=== PATIENT | female | born 1980 | race Caucasian/White ===

== ENCOUNTER 2016-06-11 14:44 | Emergency (ER) | payer OTHER | END 2016-06-11 15:20 | disposition left against medical advice (07) | LOC: UCCORT 14:44 | DX: R09.81 Nasal congestion (principal); Z53.21 Procedure and treatment not carried out due to patient leaving prior to being seen by health care provider ==

== ENCOUNTER 2016-10-27 11:49 | Emergency (ER) | payer OTHER | END 2016-10-27 13:50 | disposition left against medical advice (07) | LOC: UCCORT 11:49 | DX: N39.9 Disorder of urinary system, unspecified (principal); Z53.21 Procedure and treatment not carried out due to patient leaving prior to being seen by health care provider ==

== ENCOUNTER 2018-04-12 08:50 | Emergency (ER) | payer BC, OTHER ==
[2018-04-12 09:19] VITALS: BP 144/84
--- NOTE | 2018-04-12 10:18 | ED ---
Respiratory - HPI Summary HPI Summary: 37 yr old with runny nose, coughing, rib pain with coughing and breathin on left , hoarse voice. Onset of symptoms several days ago. Saw her PMD on The 08 of April and told she had pneumonia and started on antibiotics. She states that she is not feeling better. She continues to have a dry heavy cough, laryngitis. - History of Current Complaint Chief Complaint: UCRespiratory Stated Complaint: CHEST/RIB COMPLAINT COUGH Time Seen by Provider: 04/12/18 09:32 Pain Intensity: 10 - Allergy/Home Medications Allergies/Adverse Reactions: Allergies Allergy/AdvReac Type Severity Reaction Status Date / Time azithromycin [From Zithromax] Allergy Intermediate Hives Verified 04/12/18 09:27 erythromycin base Allergy Intermediate Hives Verified 04/12/18 09:27 amoxicillin [From Augmentin] Allergy Unknown Unknown Verified 04/12/18 09:27 Reaction Details clavulanic acid Allergy Unknown Unknown Verified 04/12/18 09:27 [From Augmentin] Reaction Details paroxetine [From Paxil] Allergy Unknown Unknown Verified 04/12/18 09:27 Reaction Details [id number] Antimigraine Allergy Unknown Unknown Verified 04/12/18 09:27 Agents Reaction Details caffeine AdvReac Intermediate Nausea Verified 04/12/18 09:27 ergotamine AdvReac Nausea Verified 04/12/18 09:27 Home Medications: Home Medications Amoxicillin/Clavulanate TAB* [Augmentin TAB 875*] 875 mg PO BID 04/12/18 [ History Confirmed 04/12/18] Benzonatate CAP* [Tessalon 100 MG CAP*] 100 mg PO TID 04/12/18 [History Confirmed 04/12/18] Budesonide Flexhaler 180 (NF) [Pulmicort Flexhaler 180 mcg/act (NF)] 180 mcg INH DAILY 04/12/18 [History Confirmed 04/12/18] predniSONE TAB* [Deltasone 10 MG TAB*] 10 mg PO DAILY 04/12/18 [History Confirmed 04/12/18] PMH/Surg Hx/FS Hx/Imm Hx Endocrine/Hematology History: Denies: Hx Diabetes Cardiovascular History: Denies: Hx Congestive Heart Failure, Hx Hypertension GI History: Reports: Other GI Disorders - pt states she has had nausea with pain History: Denies: Hx Renal Disease Sensory History: Reports: Hx Contacts or Glasses Opthamlomology History: Reports: Hx Contacts or Glasses Neurological History: Reports: Hx Seizures - march 2012, Other Neuro Impairments/Disorders - seizures Psychiatric History: Reports: Hx Anxiety - Surgical History Surgery Procedure, Year, and Place: 2 c-sections 2006. 2008, APPENDECTOMY, TUBAL LIGATION. REMOVAL OF FALLOPIAN TUBES- FEB 2015 Hx Anesthesia Reactions: No Infectious Disease History: Yes Infectious Disease History: Reports: Hx Shingles - 18 years ago Denies: Traveled Outside the [place] in Last 30 Days - Family History Known Family History: Positive: Hypertension, Other - unsure of PMH of parents - Social History Alcohol Use: Rare Alcohol Amount: GLASS OF WINE AT NIGHT Substance Use Type: Reports: None Smoking Status (MU): Former Smoker Type: Cigarettes Review of Systems Constitutional: Negative Eyes: Negative Positive: Sore Throat, Nasal Discharge Positive: Cough Negative: Edema All Other Systems Reviewed And Are Negative: Yes Physical Exam - Summary Physical Exam Summary: The patient is seated on bench in room. She appears tired, but not short of breath. She speaks with hoarse voice, and has spasmodic coughing episodes during interview. Triage Information Reviewed: Yes Vital Signs On Initial Exam: Initial Vitals Temp Pulse Resp BP Pulse Ox 100.0 F 85 22 144/84 99 04/12/18 09:16 04/12/18 09:16 04/12/18 09:16 04/12/18 09:16 04/12/18 09:16 Vital Signs Reviewed: Yes Appearance: Positive: Well-Appearing, No Pain Distress Skin: Positive: Warm, Skin Color Reflects Adequate Perfusion Head/Face: Positive: Normal Head/Face Inspection Eyes: Positive: EOMI ENT: Positive: Pharyngeal erythema, TMs normal, Hoarse voice, Uvula midline. Negative: Muffled voice Neck: Positive: Nontender Respiratory/Lung Sounds: Positive: Clear to Auscultation, Breath Sounds Present , Other - left ribs tender lower lateral Cardiovascular: Positive: RRR. Negative: Murmur Abdomen Description: Positive: Nontender Musculoskeletal: Positive: Strength/ROM Intact Neurological: Positive: Sensory/Motor Intact, Alert, Oriented to Person Place, Time, CN Intact II-III Psychiatric: Positive: Normal - Bailey Coma Scale Best Eye Response: 4 - Spontaneous Best Motor Response: 6 - Obeys Commands Best Verbal Response: 5 - Oriented Coma Scale Total: 15 Diagnostics - Vital Signs Vital Signs Temp Pulse Resp BP Pulse Ox 04/12/18 09:16 100.0 F 85 22 144/84 99 - Laboratory Lab Statement: Any lab studies that have been ordered have been reviewed, and results considered in the medical decision making process. - Radiology chest xray il lat Radiology Interpretation Completed By: Radiologist - some atelectasis left upper lobe. Disposition - Course Course Of Treatment: 37 yr old with coughing, rib pain, laryngitis, URI symptoms. No definite pneumonia on chest xray per radiologist reading, but the atelectasis reading may be pneumonia.In viewing her film she does have interstitial markings that are increased. I will cover her with Doxycycline to cover for atypical pneumonia. She knows to go to the ER for any worsening symptoms, and if not better over the weekend. - Diagnoses Provider Diagnoses: Pneumonia, Laryngitis Discharge - Sign-Out/Discharge Documenting (check all that apply): Patient Departure All imaging exams completed and their final reports reviewed: Yes - Discharge Plan Condition: Good Disposition: HOME Prescriptions: DOXYcycline CAP(*) [DOXYcycline 100MG CAP(*)] 100 mg PO BID #20 cap predniSONE TAB* [Deltasone 20 MG TAB*] 40 mg PO DAILY #4 tab Patient Education Materials: Pneumonia (ED), Laryngitis (ED), Hypertension (ED) Referrals: Hamilton Barrera MD [Primary Care Provider] - 1 Day - Billing Disposition and Condition Condition: GOOD Disposition: Home
[2018-04-12] MEDS ORDERED: predniSONE TAB* 20 MG PO ONE (10:29)
[2018-04-12] MEDS ORDERED: DOXYcycline CAP(*) 100 MG PO ONE (10:42)
== END 2018-04-12 10:57 | disposition home or self-care (01) ==
LOC: UCCORT 08:50
DX: J18.9 Pneumonia, unspecified organism (principal); J04.0 Acute laryngitis; Z88.0 Allergy status to penicillin; Z88.1 Allergy status to other antibiotic agents; Z88.8 Allergy status to other drugs, medicaments and biological substances; Z87.891 Personal history of nicotine dependence
CPT/HCPCS: 71046; 99212; A9270-GY; G0463; J7512

== ENCOUNTER → 2018-07-15 14:57 | Emergency (ER) | payer BC ==
[~2018-07-15 14:57] MED LIST: Albuterol HFA INHALER* 8 gm MDI INH ONE; Albuterol/Ipratropium NEB.SOL* Albuterol 2.5 MG/Ipratropium 0.5 MG 3 ML INH ONE; NS 0.9% 1000 ML** 1,000 ML IV ONE; Potassium Chlor TAB* 20 MEQ TAB.ER PO ONE; methylPREDNISolone 125 MG* 2 ML VIAL IV ONE
[2018-07-15 16:03] LABS: ABS Basophils 0 10^3/ul (0-0.2); ABS Eosinophils 0 10^3/ul (0-0.6); ABS Lymphocytes 2.3 10^3/ul (1.0-4.8); ABS Monocytes 0.5 10^3/ul (0-0.8); ABS Neutrophils 6.3 10^3/ul (1.5-7.7); ABS Nucleated RBC 0 10^3/ul; Eosinophil % 0.5 %; Hematocrit 40 % (35-47); Hemoglobin 13.5 g/dl (12.0-16.0); Lymphocyte % 25.1 %; Mean Corpuscular HGB Conc 34 g/dl (31-36); Mean Corpuscular Hemoglobin 28 pg (27-31); Mean Corpuscular Volume 82 fL (80-97); Mean Platelet Volume 7.9 fL (7.4-10.4); Nucleated Red Blood Cells % 0; Platelet Count 356 10^3/ul (150-450); Red Blood Count 4.89 10^6/ul (4.00-5.40); Red Cell Distribution Width 13 % (10.5-15); White Blood Count 9.1 10^3/ul (3.5-10.8)
--- NOTE | 2018-07-15 16:05 | ED ---
Shortness of Breath - HPI Summary HPI Summary: Pt is a 37 y/o F presenting to the ED with a chief complaint of shortness of breath around 1400 during her pulmonary function test. She had pneumonia in April and never really recovered from the symptoms, but only experiences shortness of breath when shes outside in the cold. She had a PFT today, during which she was given methacholine and she did not recover from her lung capacity being brought down. The pt has a hx of asthma, reactive airway disease, and anxiety. She reports sob and cough. Pt denies any fever, chills, diaphoresis, erythema of eyes, sore throat, CP, abdominal pain, N/V, dysuria, hematuria, myalgia, edema, rash, or dizziness. - History of Current Complaint Chief Complaint: EDShortnessOfBreath Time Seen by Provider: 07/15/18 15:48 Hx Obtained From: Patient Onset/Duration: Sudden Onset, Lasting Hours, Still Present Timing: Constant Current Severity: Moderate Dyspnea At: Rest Aggrevating Factors: Other - methacholine Alleviating Factors: Nothing Associated Signs & Symptoms: Cough (Nonproductive) - Allergy/Home Medications Allergies/Adverse Reactions: Allergies Allergy/AdvReac Type Severity Reaction Status Date / Time azithromycin [From Zithromax] Allergy Intermediate Hives Verified 04/12/18 09:27 erythromycin base Allergy Intermediate Hives Verified 04/12/18 09:27 amoxicillin [From Augmentin] Allergy Unknown Unknown Verified 04/12/18 09:27 Reaction Details clavulanic acid Allergy Unknown Unknown Verified 04/12/18 09:27 [From Augmentin] Reaction Details paroxetine [From Paxil] Allergy Unknown Unknown Verified 04/12/18 09:27 Reaction Details [id number] Antimigraine Allergy Unknown Unknown Verified 04/12/18 09:27 Agents Reaction Details caffeine AdvReac Intermediate Nausea Verified 04/12/18 09:27 ergotamine AdvReac Nausea Verified 04/12/18 09:27 PMH/Surg Hx/FS Hx/Imm Hx Previously Healthy: No Endocrine/Hematology History: Denies: Hx Diabetes Cardiovascular History: Denies: Hx Congestive Heart Failure, Hx Hypertension Respiratory History: Reports: Hx Asthma, Other Respiratory Problems/Disorders - reactive airway disease GI History: Reports: Other GI Disorders - pt states she has had nausea with pain History: Denies: Hx Renal Disease Sensory History: Reports: Hx Contacts or Glasses Opthamlomology History: Reports: Hx Contacts or Glasses Neurological History: Reports: Hx Seizures - march 2012, Other Neuro Impairments/Disorders - seizures Psychiatric History: Reports: Hx Anxiety - Surgical History Surgery Procedure, Year, and Place: 2 c-sections 2006. 2008, APPENDECTOMY, TUBAL LIGATION. REMOVAL OF FALLOPIAN TUBES- FEB 2015 Hx Anesthesia Reactions: No Infectious Disease History: No Infectious Disease History: Reports: Hx Shingles - 18 years ago Denies: Traveled Outside the [place] in Last 30 Days - Family History Known Family History: Positive: Hypertension, Other - unsure of PMH of parents - Social History Alcohol Use: Rare Alcohol Amount: GLASS OF WINE AT NIGHT Hx Substance Use: No Substance Use Type: Reports: None Hx Tobacco Use: Yes Smoking Status (MU): Former Smoker Type: Cigarettes Review of Systems Negative: Fever, Chills, Skin Diaphoresis Negative: Erythema Negative: Sore Throat Negative: Chest Pain Positive: Shortness Of Breath, Cough Negative: Abdominal Pain, Vomiting, Nausea Negative: dysuria, hematuria Negative: Myalgia, Edema Negative: Rash Neurological: Negative - dizziness All Other Systems Reviewed And Are Negative: Yes Physical Exam - Summary Physical Exam Summary: Constitutional: Well-developed, Well-nourished, Alert. (-) Distressed Skin: Warm, Dry HENT: Normocephalic; Atraumatic Eyes: Conjunctiva normal Neck: Musculoskeletal ROM normal neck. (-) JVD, (-) Stridor, (-) Tracheal deviation Cardio: Rhythm regular, rate normal, Heart sounds normal; Intact distal pulses; The pedal pulses are 2+ and symmetric. Radial pulses are 2+ and symmetric. (-) Murmur Pulmonary/Chest wall: Effort normal. (-) Respiratory distress, (-) Wheezes, (-) Rales Abd: Soft, (-) tenderness, (-) Distension, (-) Guarding, (-) Rebound Musculoskeletal: (-) Edema Lymph: (-) Cervical adenopathy Neuro: Alert, Oriented x3 Psych: Mood and affect Normal Triage Information Reviewed: Yes Vital Signs On Initial Exam: Initial Vitals Temp Pulse Resp BP Pulse Ox 98.6 F 126 24 171/107 94 07/15/18 15:04 07/15/18 15:04 07/15/18 15:04 07/15/18 15:04 07/15/18 15:04 Vital Signs Reviewed: Yes Diagnostics - Vital Signs Vital Signs Temp Pulse Resp BP Pulse Ox 07/15/18 15:04 98.6 F 126 24 171/107 94 - Laboratory Result Diagrams: 07/15/18 15:56 07/15/18 15:56 Lab Statement: Any lab studies that have been ordered have been reviewed, and results considered in the medical decision making process. - Radiology Chest x-ray Radiology Interpretation Completed By: Radiologist Summary of Radiographic Findings: No active cardiopulmonary disease is noted. ED physician has reviewed this report. - EKG 1638 Cardiac Rate: NL - 91bpm EKG Rhythm: Sinus Rhythm ST Segment: Normal Ectopy: None Summary of EKG Findings: No STEMI. Re-Evaluation - Re-Evaluation 1st re-eval Re-Evaluation Time: 17:10 Change: Improved Comment: Pt is feeling a little bit better. Upon examination, her lungs sound clear. She will be ambulated around the ED. Course/Dx - Course Course Of Treatment: Pt is a 37 y/o F presenting to the ED with a chief complaint of shortness of breath around 1400 during her pulmonary function test. She had pneumonia in April and never really recovered from the symptoms, but only experiences shortness of breath when shes outside in the cold. She had a PFT today, during which she was given methacholine and she did not recover from her lung capacity being brought down. The pt has a hx of asthma , reactive airway disease, and anxiety. She reports sob and cough. Pt denies any fever, chills, diaphoresis, erythema of eyes, sore throat, CP, abdominal pain, N/V, dysuria, hematuria, myalgia, edema, rash, or dizziness. Breath sounds normal upon examination. CXR shows no active cardiopulmonary disease. The pt will be sent home with dx including asthma exacerbation, methacholine challenge positive, and medication adverse effect. - Diagnoses Provider Diagnoses: Asthma exacerbation, Methacholine challenge positive, Medication adverse effect Discharge - Sign-Out/Discharge Documenting (check all that apply): Patient Departure Patient Received Moderate/Deep Sedation with Procedure: No - Discharge Plan Condition: Stable Disposition: HOME Prescriptions: predniSONE TAB* [Deltasone TAB*] 50 mg PO DAILY #3 tab Referrals: Hamilton Barrera MD [Primary Care Provider] - Additional Instructions: Please follow up with your primary care provider within the next three days. Return to the emergency department with any new or worsening symptoms. - Attestation Statements Document Initiated by Scribe: Yes Documenting Scribe: Christina Wilson Provider For Whom Scribe is Documenting (Include Credential): Lukasz Pavon MD. Scribe Attestation: I, Christina Wilson, scribed for Lukasz Pavon MD. on 07/15/18 at 1758. Status of Scribe Document: Ready
[2018-07-15 16:19] LABS: Albumin 4.5 g/dL (3.2-5.2); Albumin/Globulin Ratio 1.7 (1-3); BUN/Creatinine Ratio 12.3 (8-20); C Reactive Protein 5.53 mg/L (<8.01); EGFR African American 108.5 (>60); EGFR Non-African American 89.7 (>60); Globulin 2.6 g/dL (2-4); Potassium 2.8 mmol/L (3.5-5.0); Total Bilirubin 0.6 mg/dL (0.2-1.0); Total Protein 7.1 g/dL (6.4-8.9)
[2018-07-15 18:11] VITALS: BP 124/83
== END | disposition home or self-care (01) ==
LOC: ED 14:57
DX: J45.901 Unspecified asthma with (acute) exacerbation (principal); T44.1X5A Adverse effect of other parasympathomimetics [cholinergics], initial encounter; Y92.9 Unspecified place or not applicable; F41.9 Anxiety disorder, unspecified; Z87.891 Personal history of nicotine dependence
CPT/HCPCS: 36415; 71046; 80053; 84484; 85025; 85379; 86140; 93005; 96361; 96374; 99283; A9270-GY; J2930

== ENCOUNTER 2018-11-28 14:24 | Emergency (ER) | payer BC ==
--- OUTSIDE RECORDS SUMMARY | 2018-11-28 14:46 | XMS REPORT | Continuity of Care Document ---
:1980 External Reference #:[id number] Author Name Aki Ryan DO, MPH Address [address], [address] [place] [address] Care Team Providers Name Role Phone Hamilton Barrera M.D. 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 Primary Care Physician Unavailable Payers Date Identification Numbers Payment Provider Subscriber Policy Number: [id number] / CN[employer] Ppo Lissa Christie PayID: [id number] [address] [address] [place] [address] Family History Date Family Member(s) Observation Comments Father 64 Mother 64 Children 2 Siblings 2 Social History Type Date Description Comments Sex Unknown Marital Status Lives With Children Occupation Currently Working Occupation [employer] Work Status Currently Working ETOH Use Denies alcohol use Tobacco Use Start: Unknown End: Patient is a former smoker Unknown Recreational Drug Use Denies Drug Use Smoking Status Reviewed: 10/31/18 Patient is a former smoker Allergies, Adverse Reactions, Alerts Active Allergies Reaction Severity Comments Date Amitriptyline 10/31/2018 Nortriptyline 10/31/2018 Erythromycin Hives 10/31/2018 Medications Active Medications SIG Qnty Indications Ordering Provider Date Tramadol HCL si by mouth 90tabs Aki Ryan DO, 10/31/2018 50mg every 8 hours as MPH Tablets directed Lyrica si by mouth Unknown 150mg Capsules three times a day as directed chronic pain patient Tizanidine HCL si.5 by mouth Unknown 4mg every 8 hours as Tablets directed Alprazolam 1 every 8 hours Unknown 0.5mg as needed Tablets Dispers Lidocaine apply 1 every 10 Unknown 5% Patches hours to affected area as directed Lidocaine apply 1-2 grams Unknown 5% Cream to the cervical spine three to four times a day CBD Oil 2500 mg by mouth Unknown one to two times a day CBD Cream 500 MG as needed Unknown Magnesium 1 by mouth daily Unknown 200mg Chewtabs Vitamin B Complex si by mouth Unknown daily Tablets Daily Vitamin 1 by mouth daily Unknown Tablets Naproxen as needed Unknown 500mg Tablets Ibuprofen as needed Unknown 800mg Tablets Vital Signs Date Vital Result Comment 10/31/2018 9:26am BP Systolic 128 mmHg BP Diastolic 84 mmHg Heart Rate 86 /min Respiratory Rate 20 /min Height 62 inches 5'2" Weight 200.00 lb Pain Level 5 Pain at this time. Pain Level Without Medicine 10 02/20 without meds BMI (Body Mass Index) 36.6 kg/m2 Plan of Treatment Future Appointment(s):11/25/2018 10:15 am - Aki Ryan DO, MPH at Main Office as Of 06/14/1405 - Aki Ryan DO, MPHG89.21 Chronic pain due to traumaComments:Chronic Intractable Pain. Symptoms and complaints discussed and reviewed today. Begin trial of adequate and appropriate Opioid Pain Management as well as non-opioid treatment options - New Medications listed below.M54.2 CervicalgiaComments:Chronic Intractable Pain. Symptoms and complaints discussed and reviewed today. Begin trial of adequate and appropriate Opioid Pain Management as well as non-opioid treatment options - New Medications listed below. Notable somatic dysfunctions warranting OMT to cervicals. Patient is stable and comfortable with current medical therapy.M99.01 Segmental and somatic dysfunction of cervical regionComments:Symptoms and complaints discussed and reviewed today. Somatic dysfunctions noted warranting OMT. Continue current medical pain management and OMT. [id number]. OMT performed.M79.601 Pain in right armComments:Chronic Intractable Pain. Symptoms and complaints discussed and reviewed today. Begin trial of adequate and appropriate Opioid pain Management - New Medications listed below.M79.602 Pain in left armComments:Chronic Intractable Pain. Symptoms and complaints discussed and reviewed today. Begin trial of adequate and appropriate Opioid pain Management - New Medications listed below.M25.511 Pain in right shoulderComments :Chronic Intractable Pain. Symptoms and complaints discussed and reviewed today. Begin trial of adequate and appropriate Opioid pain Management - New Medications listed below.M25.512 Pain in left shoulderComments:Chronic Intractable Pain. Symptoms and complaints discussed and reviewed today. Begin trial of adequate and appropriate Opioid pain Management - New Medications listed below.M54.16 Radiculopathy, lumbar regionComments:Chronic Intractable Pain. Symptoms and complaints discussed and reviewed today. Begin trial of adequate and appropriate Opioid pain Management - New Medications listed below.M54.5 Low back painComments:Chronic Intractable Pain. Symptoms and complaints discussed and reviewed today. Begin trial of adequate and appropriate Opioid pain Management - New Medications listed below.M54.18 Radiculopathy, sacral and sacrococcygeal regionComments:Chronic Intractable Pain. Symptoms and complaints discussed and reviewed today. 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 A urine drug test (UDT) was ordered for this patient and collected on site today. Creatinine has been ordered as well for specimen validity, not for kidney function. Preliminary UDT results are not final and should not be used to determine patient care or plan of treatment. Initially a qualitative immunoassay screen will be done. Any inconsistent or positive findings will be further tested with a more comprehensive quantitative confirmation LCMS study. It is part of the treatment process of prescribing controlled substances and is considered standard of care.Z13.31 Encounter for screening for depressionComments:PHQ-9 Depression Screen administered today, results were Positive at this time. Followed by PCP. Will follow as pertains to their pain. Patient seems to be stable today. Reassurance and counseling. Patient seems to be stable today.F07.81 Postconcussional syndromeComments:She is following with [facility]. Will monitor as it pertains to her pain.M54.12 Radiculopathy, cervical regionComments:Chronic Intractable Pain. Symptoms and complaints discussed and reviewed today. Begin trial of adequate and appropriate Opioid pain Management - New Medications listed below. Will contact her insurance company to see if she needs prior authorization for injection therapy for the following; the injections that we are requesting on the behalf of the patient are:Tendon Sheath Injection () quantity of 4, Tendon Origin Insertion () quantity of 2,Trigger Point Injection () quantity of 2, Bilateral Occipital Nerve Block () quantity of 2.M79.671 Pain in right footComments:Chronic Intractable Pain. Symptoms and complaints discussed and reviewed today. Begin trial of adequate and appropriate Opioid pain Management - New Medications listed below.F41.9 Anxiety disorder, unspecifiedComments:Followed by PCP. Reassurance and counseling given.M79.7 FibromyalgiaComments:Symptoms and complaints discussed and reviewed today. Begin trial of adequate and appropriate OpioidPain Management - New Medications listed below.Z71.89 Other specified counselingComments:New patient counseled in regards to office practice. They were educated about our answering services. What to do if they should have to visit the ER or have any adverse reactions to medications we prescribe. Patient understands that they have to fill their prescription at one pharmacy. If there is a change they must call us and let us know what new pharmacy they will be using. They understand and agree that they must present within 24 hours of a phone call for a random urine screen and a pill count. Patient understands that if the medication needs a prior authorization that it can take up to 72 hours to complete.Z71.3 Dietary counseling and surveillanceComments:Regular, small, nutritious meals higher in protein encouraged spaced evenly throughout the day. Count calories. Keep a food log. Hydrate.AllNew Medication:Tramadol HCL 50 mg - si by mouth every 8 hours as directedComments:Chronic intractable pain - Begin trial of adequate and appropriate Opioid Pain Management - New Medications listed below; injection therapy, osteopathic manipulation, PT / modalities, and consults as needed to manage chronic pain.Non - opioid pain management discussed and options discussed.Side effects discussed; anticipatory guidance given. Patient clearly understand and agree with all medical treatments and suggestions. All medicines prescribed are adequate and appropriate for this patient's complaint of pain, medical history, physical, and personal goals.Goals of Treatment are to provide adequate and appropriate multidisciplinary medical pain management to increase/ maintain patient's quality of life and functionality while maintaining satisfactory side effect profile and minimizing joint terminal attack controller end-organ damage. Importance of regular nutrition throughout the day discussed.Activity as toleratedContinue with PCP
[2018-11-28 14:49] VITALS: BP 130/77
--- NOTE | 2018-11-28 15:20 | UC ---
Complaint Female HPI - HPI Summary HPI Summary: Pt presents with c/o sudden onset of urinary frequency,urgency and dysuria X 3days. . Pt reports that she has a hx of endometriosis and is concerned that she may be having a "flare". - History Of Current Complaint Chief Complaint: UCGU Stated Complaint: URINARY COMPLAINT Time Seen by Provider: 11/28/18 14:53 Hx Obtained From: Patient Hx Last Menstrual Period: 10/31/18 ?: No Onset/Duration: Sudden Onset, Lasting Days, Still Present Timing: Constant Severity Initially: Mild Severity Currently: Moderate Pain Intensity: 7 Character: Dull, Burning, Cramping Aggravating Factor(s): Urination Alleviating Factor(s): Nothing Associated Signs And Symptoms: Positive: Negative - Risk Factors Ectopic Risk Factor: Negative Ovarian Torsion Risk Factor: Reproductive Age - Allergies/Home Medications Allergies/Adverse Reactions: Allergies Allergy/AdvReac Type Severity Reaction Status Date / Time azithromycin [From Zithromax] Allergy Intermediate Hives Verified 11/28/18 14:50 erythromycin base Allergy Intermediate Hives Verified 11/28/18 14:50 amoxicillin [From Augmentin] Allergy Unknown Unknown Verified 11/28/18 14:50 Reaction Details clavulanic acid Allergy Unknown Unknown Verified 11/28/18 14:50 [From Augmentin] Reaction Details paroxetine [From Paxil] Allergy Unknown Unknown Verified 11/28/18 14:50 Reaction Details [id number] Antimigraine Allergy Unknown Unknown Verified 11/28/18 14:50 Agents Reaction Details caffeine AdvReac Intermediate Nausea Verified 11/28/18 14:50 ergotamine AdvReac Nausea Verified 11/28/18 14:50 PMH/Surg Hx/FS Hx/Imm Hx Previously Healthy: Yes - Surgical History Surgical History: Yes Surgery Procedure, Year, and Place: 2 c-sections 2006. 2009, APPENDECTOMY, TUBAL LIGATION. REMOVAL OF FALLOPIAN TUBES- FEB 2015 - Family History Known Family History: Positive: Hypertension, Other - unsure of PMH of parents - Social History Occupation: Employed Full-time Lives: With Family Alcohol Use: Rare Alcohol Amount: GLASS OF WINE AT NIGHT Substance Use Type: None Smoking Status (MU): Former Smoker Type: Cigarettes Have You Smoked in the Last Year: No When Did the Patient Quit Smoking/Using Tobacco: 1999 - Immunization History Vaccination Up to Date: Yes Review of Systems All Other Systems Reviewed And Are Negative: Yes Constitutional: Positive: Negative Skin: Positive: Negative Eyes: Positive: Negative ENT: Positive: Negative Respiratory: Positive: Negative Cardiovascular: Positive: Negative Gastrointestinal: Positive: Negative Genitourinary: Positive: Dysuria, Frequency, Urgency Motor: Positive: Negative Neurovascular: Positive: Negative Musculoskeletal: Positive: Negative Neurological: Positive: Negative Psychological: Positive: Negative Is Patient Immunocompromised?: No Physical Exam Triage Information Reviewed: Yes Appearance: Well-Appearing Vital Signs: Initial Vital Signs Temp 100.2 F 11/28/18 14:46 Pulse 99 11/28/18 14:46 Resp 17 11/28/18 14:46 BP 130/77 11/28/18 14:46 Pulse Ox 97 11/28/18 14:46 Vital Signs Reviewed: Yes Eye Exam: Normal ENT Exam: Normal Dental Exam: Normal Neck exam: Normal Respiratory Exam: Normal Cardiovascular Exam: Normal Abdominal Exam: Normal Musculoskeletal Exam: Normal Neurological Exam: Normal Psychological Exam: Normal Skin Exam: Normal Complaint Female Dx - Differential Dx/Diagnosis Differential Diagnosis/HQI/PQRI: Endometriosis, Urinary Tract Infection Provider Diagnosis: UTI (urinary tract infection) Discharge - Sign-Out/Discharge Documenting (check all that apply): Patient Departure All imaging exams completed and their final reports reviewed: No Studies - Discharge Plan Condition: Stable Disposition: HOME Prescriptions: Nitrofurantoin Monohyd/M-Cryst [Macrobid 100 mg Capsule] 100 mg PO Q12H #10 cap Phenazopyridine TAB* [Pyridium 100 mg TAB*] 100 mg PO Q8H #3 tab Patient Education Materials: Urinary Tract Infection in Women (ED) Referrals: Hamilton Barrera MD [Primary Care Provider] - If Needed - Billing Disposition and Condition Condition: STABLE Disposition: Home
== END 2018-11-28 15:15 | disposition home or self-care (01) ==
LOC: UCCORT 14:24
DX: N39.0 Urinary tract infection, site not specified (principal); Z88.1 Allergy status to other antibiotic agents; Z87.891 Personal history of nicotine dependence
CPT/HCPCS: 81003; 87077; 87086; 87186; 99212; G0463